=== PATIENT | female | born 1995 | race American Indian/Alaskan Native ===

== ENCOUNTER 2020-02-12 19:47 | Emergency (ER) | payer BC, OTHER ==
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
== END 2020-02-12 23:14 | disposition home or self-care (01) ==
LOC: MW.ED 19:47
DX: S09.90XA Unspecified injury of head, initial encounter (principal); U07.1 COVID-19; Y04.0XXA Assault by unarmed brawl or fight, initial encounter
CPT/HCPCS: 70450; 70450-26; 71045; 71045-26; 72125; 72125-26; 99283; 99284-25

== ENCOUNTER 2022-02-09 21:55 | Emergency (ER) | payer SELFPAY ==
[2022-02-10] MEDS ORDERED: Amoxicillin/Clavulanate K 875-125 MG Tab PO ONE (00:10)
== END 2022-02-10 00:28 | disposition home or self-care (01) ==
LOC: MW.ED 21:55
DX: O23.41 Unspecified infection of urinary tract in pregnancy, first trimester (principal); N39.0 Urinary tract infection, site not specified
CPT/HCPCS: 81001; 81025; 87086; 99284; A9270; 87088; 87186; 99283

== ENCOUNTER 2022-09-17 22:26 | Inpatient (IN) | payer MEDICAID ==
[2022-09-17] MEDS: Lactated Ringers 1,000 ML IV SCH (22:37)
[2022-09-17] MEDS ORDERED: Ampicillin 2 GM in Sodium Chloride 0.9% 100 ML IV ONE (22:45)
[2022-09-17] MEDS ORDERED: Misoprostol 200 MCG Tab PO PRN (22:45)
[2022-09-17] MEDS ORDERED: Tranexamic Acid 1,000 MG in Sodium Chloride 0.9% 100 ML IV PRN (22:45)
[2022-09-17] MEDS ORDERED: Carboprost Tromethamine 250 MCG/1 ML Amp IM PRN (22:45)
[2022-09-17] MEDS ORDERED: Oxytocin/0.9 % Sodium Chloride 30 UNIT/500 ML BAG IV SCH (22:45)
[2022-09-17] MEDS ORDERED: Lidocaine 1% 50 ML MDV INJECT PRN (22:45)
[2022-09-17] MEDS ORDERED: Butorphanol 1 MG/ML SDV IVPUSH PRN (22:45)
[2022-09-17] MEDS ORDERED: Methylergonovine 0.2 MG/1 ML Amp IM PRN (22:45)
[2022-09-17] MEDS ORDERED: Sodium Chloride 0.9% 20 ML SDV IV PRN (22:45)
[2022-09-17] MEDS ORDERED: Water For Irrigation,Sterile 1,000 ML Container IRR PRN (22:45)
[2022-09-17] MEDS ORDERED: Sodium Chloride 0.9% 10 ML Syringe FLUSH PRN (22:45)
[2022-09-17] MEDS ORDERED: Sodium Chloride 0.9% 2.5 ML Syringe FLUSH PRN (22:45)
[2022-09-17] MEDS ORDERED: Sodium Chloride 0.9% 100 ML ONE (22:53)
[2022-09-17] MEDS ORDERED: Ropivacaine/PF 400 MG/200 ML PCA ONE (23:30)
[2022-09-17] MEDS ORDERED: Bupivacaine 0.5% 10 ML SDV ONE (23:30)
[2022-09-17] MEDS ORDERED: Ropivacaine HCl/PF 400 MG in Premix Bag 1 BAG EPIDUR SCH (23:45)
[2022-09-17] MEDS ORDERED: Phenylephrine HCl In 0.9% NaCl 1 MG/10 ML Vial IVPUSH SCH (23:45)
[2022-09-17] MEDS ORDERED: ePHEDrine 50 MG/ML SDV IVPUSH PRN ×2 (23:52)
[2022-09-17] MEDS ORDERED: Phenylephrine HCl In 0.9% NaCl 1 MG/10 ML Vial IVPUSH PRN (23:52)
[2022-09-18] MEDS: Lactated Ringers 1,000 ML IV SCH (00:31)
[2022-09-18] MEDS ORDERED: Acetaminophen 500 MG Tab PO PRN ×2 (01:12)
[2022-09-18] MEDS ORDERED: Lanolin 100% Cream 7 GM Tube TOP PRN (01:12)
[2022-09-18] MEDS ORDERED: Benzocaine/Menthol 20%-0.5% Spray 78 GM Cannister TOP PRN (01:12)
[2022-09-18] MEDS ORDERED: Bisacodyl 10 MG Supp RECTAL PRN (01:12)
[2022-09-18] MEDS ORDERED: Witch Hazel Medicated Pads 40/Jar TOP PRN (01:12)
[2022-09-18] MEDS ORDERED: Ibuprofen 400 MG Tab PO PRN (01:12)
[2022-09-18] MEDS ORDERED: Docusate Sodium 100 MG Cap PO PRN (01:12)
[2022-09-18] MEDS: Ibuprofen 800 MG Tab PO PRN ×2 (04:27→12:22)
[2022-09-18] MEDS: oxyCODONE 5 MG Tab PO PRN ×2 (09:18→16:41)
[2022-09-19] MEDS: Ibuprofen 800 MG Tab PO PRN ×2 (01:47→13:55)
[2022-09-20] MEDS: Ibuprofen 800 MG Tab PO PRN (04:38)
== END 2022-09-20 12:03 | disposition home or self-care (01) | DRG 807 ==
LOC: MW.OBCHECK 22:26 → MW.OB 22:30 → MW.OBCHECK 22:44 → MW.OB 22:45 → OBSVTOIN 09-18 00:59 → MW.OB 09-18 06:27
PROVIDERS: ADMIT Obstetrics & Gynecology; ATTEND Obstetrics & Gynecology
PROC: 10E0XZZ Delivery of Products of Conception, External Approach (ICD-10-PCS; principal; 2022-09-18)
PROC: 3E0R3BZ Introduction of Anesthetic Agent into Spinal Canal, Percutaneous Approach (ICD-10-PCS; 2022-09-18)
PROC: 00HU33Z Insertion of Infusion Device into Spinal Canal, Percutaneous Approach (ICD-10-PCS; 2022-09-18)
DX: O99.324 Drug use complicating childbirth (principal); Z37.0 Single live birth; F12.90 Cannabis use, unspecified, uncomplicated; Z20.822 Contact with and (suspected) exposure to COVID-19; F15.90 Other stimulant use, unspecified, uncomplicated; Z3A.38 38 weeks gestation of pregnancy
CPT/HCPCS: 36415; 51702; 59025; 59409; 80305-QW; 85014; 85018; 85027; 86592; 86850; 86900; 86901; A9270-GY; J0290; J2590; J2795; J3490; J7050; J7120; U0002

== ENCOUNTER 2024-09-08 11:11 | Emergency (ER) | payer SELFPAY ==
[2024-09-08 15:01] LABS: BASOPHILS ABSOLUTE AUTO 0.06 K/uL (0.00-0.20); BASOPHILS PERCENT AUTO 0.5 % (0.0-1.0); EOSINOPHILS ABSOLUTE AUTO 0.01 K/uL (0.00-0.45); EOSINOPHILS PERCENT AUTO 0.1 % (0.0-6.0); HEMATOCRIT 43.9 % (37.0-47.0); HEMOGLOBIN 15.4 g/dL (12.0-16.0); IMMATURE GRAN ABSOLUTE AUTO 0.02 K/uL (0.00-0.05); IMMATURE GRAN PERCENT AUTO 0.2 % (0.0-0.4); LYMPHOCYTES ABSOLUTE AUTO 3.22 K/uL (1.00-4.80); LYMPHOCYTES PERCENT AUTO 27.5 % (24.0-44.0); MEAN CORPUSCULAR HEMOGLOBIN 32.6 pg (28.0-32.0); MEAN CORPUSCULAR HGB CONC 35.1 g/dL (32.0-36.0); MONOCYTES PERCENT AUTO 6.8 % (0.0-8.0); NEUTROPHILS ABSOLUTE AUTO 7.61 K/uL (1.80-7.70); NEUTROPHILS PERCENT AUTO 64.9 % (41.0-71.0); PLATELET COUNT,PLT 317 K/uL (150-400); RED BLOOD CELL COUNT 4.72 M/uL (4.10-5.30); WHITE BLOOD CELL COUNT,WBC 11.72 K/uL (3.9-11.3)
[2024-09-08 15:35] LABS: A/G RATIO 1.1 (0.9-1.6); ACETAMINOPHEN <2.0 ug/mL; ALANINE AMINOTRANSFERASE,ALT 42 IU/L (14-63); ALBUMIN 4.9 g/dL (3.4-5.0); ALKALINE PHOSPHATASE 64 U/L (46-116); ASPARTATE AMNIOTRANSFERASE,AST 27 IU/L (15-37); BILIRUBIN TOTAL 0.8 mg/dL (0.2-1.0); BLOOD UREA NITROGEN,BUN 14 mg/dL (7.0-18.0); CALCIUM 9.7 mg/dL (8.5-10.1); CARBON DIOXIDE,CO2 26.5 mmol/L (21.0-32.0); CHLORIDE,CL 100 mmol/L (98-107); CREATININE 0.9 mg/dL (0.6-1.0); EST CRCL DRUG DOSING (CG) 72.48 mL/min; GLUCOSE RANDOM 83 mg/dL (74-106); POTASSIUM,K 3.6 mmol/L (3.5-5.1); PROTEIN TOTAL,TP 9.3 g/dL (6.4-8.2); SALICYLATE 0.3 mg/dL (0.0-20.0); SODIUM,NA 141 mmol/L (136-145)
[2024-09-08 15:36] LABS: ESTIMATED GFR 90 mL/min (>60)
[2024-09-08] MEDS: Haloperidol Lactate 5 MG/ML SDV IM ONE (16:49)
[2024-09-08] MEDS: LORazepam 2 MG/ML SDV IM ONE (16:49)
[2024-09-08 21:57] LABS: APPEARANCE,URINE CLEAR; BILIRUBIN,URINE NEGATIVE (NEGATIVE); COLOR,URINE YELLOW; GLUCOSE,URINE NEGATIVE (NEGATIVE); KETONES,URINE TRACE mg/dL (NEGATIVE); LEUKOCYTE ESTERASE,URINE TRACE (NEGATIVE); NITRITE,URINE POSITIVE (NEGATIVE); OCCULT BLOOD,URINE SMALL (NEGATIVE); PH,URINE 6.5 (5.0-8.0); PROTEIN,URINE TRACE mg/dL (NEGATIVE)
[2024-09-08 22:07] LABS: AMPHETAMINES SCREEN, URINE PRESUMPTIVE POSITIVE (CUTOFF=500); BARBITURATE SCREEN,URINE NEGATIVE (CUTOFF=200); BENZODIAZEPINES SCREEN,URINE PRESUMPTIVE POSITIVE (CUTOFF=150); BUPRENORPHINE SCREEN,URINE NEGATIVE (CUTOFF=10); METHADONE SCREEN, URINE NEGATIVE (CUTOFF=200); METHAMPHETAMINES SCREEN, URINE PRESUMPTIVE POSITIVE (CUTOFF=500); OXYCODONE SCREEN,URINE NEGATIVE (CUT0FF=100); PCP SCREEN,URINE NEGATIVE (CUTOFF=25); THC SCREEN,URINE 20 NG/ML PRESUMPTIVE POSITIVE (CUTOFF=50)
[2024-09-08 22:10] LABS: BACTERIA,URINE 4+ (NEGATIVE); EPITHELIAL CELLS,URINE MODERATE (NONE-FEW); RBC,URINE 0-2 (0-2/HPF); WBC,URINE 25-30 (0-5/HPF)
[2024-09-09] MEDS: Sulfamethoxazole/Trimethoprim 800-160 MG Tab PO ONE (00:17)
== END 2024-09-09 09:25 ==
LOC: MW.ED 11:11
DX: F29 Unspecified psychosis not due to a substance or known physiological condition (principal); N39.0 Urinary tract infection, site not specified; Z75.8 Other problems related to medical facilities and other health care
CPT/HCPCS: 36415; 70450; 80053; 80143; 80179; 80305; 81001; 84703; 85025; 93005; 96372; 99285; A9270; J1630; J2060; 93010; 99284

== ENCOUNTER 2025-04-20 22:19 | Emergency (ER) | payer MEDICAID ==
[2025-04-20] MEDS: Ondansetron 4 MG/2 ML SDV IVPUSH ONE (23:33)
[2025-04-21] MEDS: Propofol 200 MG/20 ML SDV IVPUSH ONE (00:28)
== END 2025-04-21 01:51 | disposition home or self-care (01) ==
LOC: MW.ED 22:19
DX: S43.014A Anterior dislocation of right humerus, initial encounter (principal); S43.034A Inferior dislocation of right humerus, initial encounter; Y09 Assault by unspecified means
CPT/HCPCS: 23650; 73030; 96374; 96375; 99152; 99153; 99284; J1171; J2405; J2704; 23655

== ENCOUNTER 2025-05-04 10:38 | Emergency (ER) | payer MEDICAID ==
[2025-05-04] MEDS ORDERED: Sodium Chloride 0.9% 10 ML Syringe FLUSH PRN (10:47)
[2025-05-04] MEDS ORDERED: Sodium Chloride 0.9% 2.5 ML Syringe FLUSH PRN (10:47)
[2025-05-04 11:09] LABS: BASOPHILS ABSOLUTE AUTO 0.06 K/uL (0.00-0.20); BASOPHILS PERCENT AUTO 0.6 % (0.0-1.0); EOSINOPHILS ABSOLUTE AUTO 0.04 K/uL (0.00-0.45); EOSINOPHILS PERCENT AUTO 0.4 % (0.0-6.0); IMMATURE GRAN ABSOLUTE AUTO 0.02 K/uL (0.00-0.05); IMMATURE GRAN PERCENT AUTO 0.2 % (0.0-0.4); LYMPHOCYTES ABSOLUTE AUTO 2.37 K/uL (1.00-4.80); LYMPHOCYTES PERCENT AUTO 24.8 % (24.0-44.0); MEAN PLATELET VOLUME 10.2 fL (9.4-12.3); MONOCYTES ABSOLUTE AUTO 0.81 K/uL (0.00-0.80); MONOCYTES PERCENT AUTO 8.5 % (0.0-8.0); NEUTROPHILS ABSOLUTE AUTO 6.25 K/uL (1.80-7.70); NEUTROPHILS PERCENT AUTO 65.5 % (41.0-71.0); NRBC ABSOLUTE 0.00 K/uL (0.00-0.02); NRBC PERCENT 0.0 /100WBC (0.0-0.2); PLATELET COUNT,PLT 317 K/uL (150-400); RED BLOOD CELL COUNT 4.20 M/uL (4.10-5.30); WHITE BLOOD CELL COUNT,WBC 9.55 K/uL (3.9-11.3)
[2025-05-04 11:10] LABS: APPEARANCE,URINE CLEAR; GLUCOSE,URINE NEGATIVE (NEGATIVE); OCCULT BLOOD,URINE TRACE-INTACT (NEGATIVE)
[2025-05-04 11:17] LABS: EPITHELIAL CELLS,URINE MODERATE (NONE-FEW)
[2025-05-04] MEDS: Ondansetron 4 MG/2 ML SDV IVPUSH ONE (11:19)
[2025-05-04] MEDS: Ketorolac 30 MG/ML SDV IVPUSH ONE (11:19)
[2025-05-04 11:20] LABS: AMPHETAMINES SCREEN, URINE PRESUMPTIVE POSITIVE (CUTOFF=500); BUPRENORPHINE SCREEN,URINE NEGATIVE (CUTOFF=10); METHADONE SCREEN, URINE NEGATIVE (CUTOFF=200); METHAMPHETAMINES SCREEN, URINE PRESUMPTIVE POSITIVE (CUTOFF=500); OXYCODONE SCREEN,URINE NEGATIVE (CUT0FF=100); PCP SCREEN,URINE NEGATIVE (CUTOFF=25); THC SCREEN,URINE 20 NG/ML PRESUMPTIVE POSITIVE (CUTOFF=50)
[2025-05-04 11:36] LABS: A/G RATIO 1.2 (0.9-1.6); ALANINE AMINOTRANSFERASE,ALT 28.0 IU/L (14-63); ASPARTATE AMNIOTRANSFERASE,AST 27.0 IU/L (15-37); BILIRUBIN TOTAL 0.6 mg/dL (0.2-1.0); BLOOD UREA NITROGEN,BUN 13.0 mg/dL (7.0-18.0); CARBON DIOXIDE,CO2 23.6 mmol/L (21.0-32.0); CHLORIDE,CL 103.0 mmol/L (98-107); CREATININE 0.8 mg/dL (0.6-1.0); EST CRCL DRUG DOSING (CG) 95.05 mL/min; GLUCOSE RANDOM 91.0 mg/dL (74-106); POTASSIUM,K 3.6 mmol/L (3.5-5.1); PROTEIN TOTAL,TP 8.0 g/dL (6.4-8.2); SODIUM,NA 141.0 mmol/L (136-145)
[2025-05-04 11:40] LABS: ESTIMATED GFR 104.0 mL/min (>60)
== END 2025-05-04 12:36 | disposition home or self-care (01) ==
LOC: MW.ED 10:38
DX: R11.2 Nausea with vomiting, unspecified (principal); R82.5 Elevated urine levels of drugs, medicaments and biological substances; Z79.899 Other long term (current) drug therapy
CPT/HCPCS: 36415; 80053; 80305; 81001; 85025; 96361; 96374; 96375; 99284; J1885; J2405; J7030; 99283